=== PATIENT | female | born 1965 ===

== ENCOUNTER → 2016-04-30 | Outpatient (CLI) | payer BC, OTHER ==
[2016-04-30 11:19] LABS: ANION GAP 12 (5-19); BLOOD UREA NITROGEN 15 mg/dL (7-20); CALCIUM 9.6 mg/dL (8.4-10.2); CARBON DIOXIDE 26 mmol/L (22-30); CHLORIDE 101 mmol/L (98-107); CHOLESTEROL 252.22 mg/dL (0-200); CREATININE RESULT 0.76 mg/dL (0.52-1.25); Direct HDL 45 mg/dL (>40); GLUCOSE 91 mg/dL (75-110); SODIUM 138.8 mmol/L (137-145); TRIGLYCERIDES 258 mg/dL (<150)
[2016-04-30 11:30] LABS: DIRECT LDL 190 mg/dL (<100)
[2016-04-30 11:32] LABS: VLDL CHOLESTEROL 51.6 mg/dL (10-31)
== END ==
LOC: OD 09:16
PROVIDERS: ATTEND Internal Medicine Cardiovascular Disease
DX: E78.5 Hyperlipidemia, unspecified (principal); Z79.899 Other long term (current) drug therapy
CPT/HCPCS: 36415; 80048; 80061